=== PATIENT | male | born 1960 | race Caucasian/White ===

== ENCOUNTER 2024-03-15 22:53 | Inpatient (IN) | payer BC ==
[~2024-03-15 22:53] MED LIST: Iopamidol 300 61% 100 ML VIAL FS ONE
[2024-03-15 23:43] LABS: Hematocrit 40.6 % (38.8-50.0); Hemoglobin 14.5 g/dL (13.5-17.5); MDiff Complete? YES; Mean Corpuscular HGB CONC 35.7 g/dL (32.0-36.0); Mean Corpuscular Hemoglobin 31.9 pg (27.0-33.0); Mean Corpuscular Volume 89.4 fl (81.2-95.1); Mean Platelet Volume 10.2 fl (7.4-10.4); Platelet Count 287 10x3/uL (150-450); RBC Distribution Width 12.1 % (11.5-14.5); Red Blood Cell (RBC) Count 4.54 10x6/uL (4.32-5.72); White Blood Cell (WBC) Count 20.6 10x3/uL (3.5-10.5)
[2024-03-15 23:52] LABS: ALT (SGPT) 21 U/L (8-55); AST (SGOT) 19 U/L (5-34); Albumin 3.4 g/dL (3.4-4.8); Alkaline Phosphatase 64 U/L (40-110); Anion Gap 24 mmol/L (10-20); BUN (Urea Nitrogen) 15 mg/dL (8.4-25.7); Bilirubin, Total 1.6 mg/dL (0.2-1.2); Calc. Creatinine Clearance 0 mL/min (70-130); Calcium 9.1 mg/dL (7.8-10.44); Carbon Dioxide 19 mmol/L (23-31); Chloride 95 mmol/L (98-107); Estimated GFR 94; Globulin 3.3 g/dL (2.4-3.5); Glucose 189 mg/dL (80-115); Potassium 4.5 mmol/L (3.5-5.1); Protein, Total 6.7 g/dL (5.8-8.1); Sodium 133 mmol/L (136-145)
[2024-03-15 23:57] LABS: Troponin I Less than 0.010 ng/mL (< 0.028)
[2024-03-16] MEDS ORDERED: Ondansetron PF 4 MG/2 ML Vial ONE ×2 (00:10→12:31)
[2024-03-16] MEDS ORDERED: Ketorolac Tromethamine 30 MG (1 mL) VIAL ONE (00:10)
[2024-03-16 00:11] LABS: Band 7 % (5-11); Eosinophils 1 % (0-10); Lymphocytes 5 % (21-51); Monocytes 6 % (0-10); Neutrophil 81 % (42-75)
[2024-03-16 00:18] LABS: Platelet Adequacy Comment Appears Adequate; RBC Morph Comment Within Normal Limits
[2024-03-16] MEDS ORDERED: Piperacillin/Tazobactam 4.5 GM VIAL ONE (00:54)
[2024-03-16] MEDS: Sodium Chloride 0.9% 1,000 ML IV SCH (03:00)
[2024-03-16] MEDS ORDERED: Communication Order-Pharmacy FS SCH (03:16)
[2024-03-16] MEDS ORDERED: Ondansetron ODT 4 MG TAB PO PRN (03:20)
[2024-03-16] MEDS ORDERED: Ondansetron PF 4 MG/2 ML Vial IVP PRN (03:20)
[2024-03-16] MEDS ORDERED: Dextrose 50% Abboject 50 ML SYRINGE SLOW IVP PRN (03:24)
[2024-03-16] MEDS ORDERED: Glucagon 1 MG/ML KIT IM PRN (03:24)
[2024-03-16] MEDS ORDERED: Dextrose 5% in Water 1,000 ML IV PRN (03:24)
[2024-03-16] MEDS ORDERED: Piperacillin/Tazobactam 3.375 GM in Sodium Chloride 0.9% 100 ML IVPB SCH (03:30)
[2024-03-16 04:00] LABS: INR-International Normal Ratio 1.2; PTT 31.2 sec (22.0-33.0); Prothrombin Time 12.5 sec (9.5-12.1)
[2024-03-16 04:03] LABS: Magnesium 1.8 mg/dL (1.6-2.6)
[2024-03-16 04:16] LABS: Anion Gap 20 mmol/L (10-20); BUN (Urea Nitrogen) 16 mg/dL (8.4-25.7); Calc. Creatinine Clearance 0 mL/min (70-130); Calcium 8.8 mg/dL (7.8-10.44); Carbon Dioxide 21 mmol/L (23-31); Chloride 97 mmol/L (98-107); Estimated GFR 86; Glucose 169 mg/dL (80-115); Potassium 4.3 mmol/L (3.5-5.1); Sodium 134 mmol/L (136-145)
[2024-03-16] MEDS ORDERED: Magnesium Sulfate/D5W 1 GM/100 ML BAG ONE (04:58)
[2024-03-16] MEDS ORDERED: Piperacillin/Tazobactam 3.375 GM VIAL ONE (04:58)
[2024-03-16] MEDS: Magnesium Sulfate/D5W 1 GM in Premix 1 BAG IVPB SCH (04:58)
[2024-03-16] MEDS: Piperacillin/Tazobactam 3.375 GM in Sodium Chloride 0.9% 100 ML IVPB SCH (05:00)
[2024-03-16] MEDS: Pantoprazole 40 MG VIAL IVP SCH (09:40)
[2024-03-16] MEDS: Morphine 2 MG/ML VIAL SLOW IVP PRN (09:41)
[2024-03-16 10:51] VITALS: BMI 31.9
[2024-03-16] MEDS ORDERED: Rocuronium Bromide 10 MG/ML (10ML VIAL) ONE (11:37)
[2024-03-16] MEDS ORDERED: Lidocaine 2% PF 5 ML VIAL ONE (11:37)
[2024-03-16] MEDS ORDERED: PROPOFOL 20 ML ONE (11:37)
[2024-03-16] MEDS ORDERED: Bupivacaine/Epinephrine 0.25% 30 ML VIAL ONE (12:12)
[2024-03-16] MEDS ORDERED: fentaNYL 50 mcg/mL 1 mL Vial ONE (12:13)
[2024-03-16] MEDS ORDERED: PHENYLEPHRINE-NS 100 MCG/ML 10 ML SYRINGE ONE ×3 (12:24→13:47)
[2024-03-16] MEDS ORDERED: Dexamethasone 20 MG/5 ML VIAL ONE (12:31)
[2024-03-16] MEDS ORDERED: ePHEDrine Sulfate 50 MG/10 ML VIAL ONE (12:53)
[2024-03-16] MEDS ORDERED: SUGAMMADEX SODIUM 200 MG/2 ML VIAL ONE (13:48)
[2024-03-16] MEDS ORDERED: Phenylephrine 40 MG/NS 250 ML 250 ML ONE (14:14)
[2024-03-16] MEDS ORDERED: Phenylephrine 40 MG in Sodium Chloride 0.9% 250 ML 250 ML IVPB SCH (16:15)
[2024-03-16] MEDS ORDERED: Phenylephrine 40 MG/NS 250 ML 40 MG in Premix 1 BAG IVPB SCH (16:45)
[2024-03-16] MEDS: Atorvastatin Calcium 40 MG TAB PO SCH (21:50)
[2024-03-16] MEDS: HumaLOG 300 UNITS/3 ML VIAL SC PRN (22:05)
[2024-03-17 03:45] LABS: #Basophils 0.01 10x3/uL (0.0-0.2); #Monocytes 1.09 10x3/uL (0.0-1.1); #Neutrophils 10.81 10x3/uL (1.5-8.4); %Basophils 0.1 % (0.0-2.0); %Lymphocytes 2.8 % (18.0-47.0); %Monocytes 8.9 % (0.0-10.0); %Neutrophils 87.8 % (40.0-75.0); Hematocrit 26.5 % (38.8-50.0); Hemoglobin 9.5 g/dL (13.5-17.5); Mean Corpuscular HGB CONC 35.8 g/dL (32.0-36.0); Mean Corpuscular Hemoglobin 32.6 pg (27.0-33.0); Mean Corpuscular Volume 91.1 fl (81.2-95.1); Mean Platelet Volume 10.7 fl (7.4-10.4); Platelet Count 295 10x3/uL (150-450); RBC Distribution Width 12.2 % (11.5-14.5); Red Blood Cell (RBC) Count 2.91 10x6/uL (4.32-5.72); White Blood Cell (WBC) Count 12.3 10x3/uL (3.5-10.5)
[2024-03-17 03:53] LABS: Anion Gap 15 mmol/L (10-20); BUN (Urea Nitrogen) 25 mg/dL (8.4-25.7); Calc. Creatinine Clearance 108 mL/min (70-130); Carbon Dioxide 19 mmol/L (23-31); Chloride 102 mmol/L (98-107); Estimated GFR 82; Glucose 203 mg/dL (80-115); Potassium 4.3 mmol/L (3.5-5.1); Sodium 132 mmol/L (136-145)
[2024-03-17 10:31] LABS: ALT (SGPT) 61 U/L (8-55); AST (SGOT) 56 U/L (5-34); Albumin 2.3 g/dL (3.4-4.8); Alkaline Phosphatase 41 U/L (40-110); Bilirubin, Direct 0.4 mg/dL (0.1-0.3); Bilirubin, Total 0.6 mg/dL (0.2-1.2); Magnesium 2.2 mg/dL (1.6-2.6); Phosphorus 2.8 mg/dL (2.3-4.7); Protein, Total 5.6 g/dL (5.8-8.1)
[2024-03-17 10:32] LABS: Troponin I Less than 0.010 ng/mL (< 0.028)
[2024-03-18 03:15] LABS: #Monocytes 0.81 10x3/uL (0.0-1.1); #Neutrophils 7.04 10x3/uL (1.5-8.4); %Lymphocytes 4.3 % (18.0-47.0); %Monocytes 9.8 % (0.0-10.0); %Neutrophils 85.5 % (40.0-75.0); Hematocrit 22.3 % (38.8-50.0); Hemoglobin 7.8 g/dL (13.5-17.5); Mean Corpuscular Hemoglobin 31.8 pg (27.0-33.0); Mean Platelet Volume 10.4 fl (7.4-10.4); Platelet Count 253 10x3/uL (150-450); RBC Distribution Width 12.2 % (11.5-14.5); Red Blood Cell (RBC) Count 2.45 10x6/uL (4.32-5.72); White Blood Cell (WBC) Count 8.2 10x3/uL (3.5-10.5)
[2024-03-18 03:46] LABS: Anion Gap 14 mmol/L (10-20); BUN (Urea Nitrogen) 21 mg/dL (8.4-25.7); Calc. Creatinine Clearance 163 mL/min (70-130); Calcium 8.2 mg/dL (7.8-10.44); Carbon Dioxide 22 mmol/L (23-31); Chloride 101 mmol/L (98-107); Estimated GFR 101; Glucose 158 mg/dL (80-115); Magnesium 2.6 mg/dL (1.6-2.6); Potassium 3.8 mmol/L (3.5-5.1); Sodium 133 mmol/L (136-145)
[2024-03-18] MEDS: Carvedilol 25 MG TAB PO SCH ×2 (11:10→21:23)
[2024-03-18] MEDS: Sacubitril 49 MG/Valsartan 51 MG TABLET PO SCH ×2 (12:08→22:00)
[2024-03-18 13:26] LABS: #Basophils 0.01 10x3/uL (0.0-0.2); #Eosinphils 0.01 10x3/uL (0.0-0.5); #Monocytes 0.65 10x3/uL (0.0-1.1); %Basophils 0.2 % (0.0-2.0); %Eosinophils 0.2 % (0.0-6.0); %Lymphocytes 5.8 % (18.0-47.0); %Monocytes 9.9 % (0.0-10.0); %Neutrophils 83.6 % (40.0-75.0); Hematocrit 21.7 % (38.8-50.0); Hemoglobin 7.5 g/dL (13.5-17.5); Mean Corpuscular HGB CONC 34.6 g/dL (32.0-36.0); Mean Corpuscular Hemoglobin 31.8 pg (27.0-33.0); Mean Corpuscular Volume 91.9 fl (81.2-95.1); Mean Platelet Volume 9.9 fl (7.4-10.4); Platelet Count 241 10x3/uL (150-450); RBC Distribution Width 12.3 % (11.5-14.5); Red Blood Cell (RBC) Count 2.36 10x6/uL (4.32-5.72); White Blood Cell (WBC) Count 6.6 10x3/uL (3.5-10.5)
[2024-03-18 13:44] LABS: ALT (SGPT) 59 U/L (8-55); AST (SGOT) 38 U/L (5-34); Albumin 2.3 g/dL (3.4-4.8); Alkaline Phosphatase 48 U/L (40-110); Bilirubin, Direct 0.2 mg/dL (0.1-0.3); Bilirubin, Total 0.4 mg/dL (0.2-1.2)
[2024-03-18] MEDS: Potassium Chloride 20 MEQ TAB PO SCH (18:28)
[2024-03-18 18:29] LABS: Magnesium 2.7 mg/dL (1.6-2.6)
[2024-03-18 18:54] LABS: Phosphorus 1.6 mg/dL (2.3-4.7)
[2024-03-18] MEDS ORDERED: Electrolyte Replacement Protocol 1 EACH FS PRN (18:56)
[2024-03-18] MEDS: PHOS-NAK 1 PKT PACK PO SCH (21:23)
[2024-03-19 02:55] LABS: #Basophils 0.01 10x3/uL (0.0-0.2); #Eosinphils 0.05 10x3/uL (0.0-0.5); #Monocytes 0.53 10x3/uL (0.0-1.1); #Neutrophils 4.12 10x3/uL (1.5-8.4); %Basophils 0.2 % (0.0-2.0); %Eosinophils 0.9 % (0.0-6.0); %Lymphocytes 12.2 % (18.0-47.0); %Monocytes 9.8 % (0.0-10.0); %Neutrophils 76.3 % (40.0-75.0); Hematocrit 23.1 % (38.8-50.0); Hemoglobin 7.9 g/dL (13.5-17.5); Mean Corpuscular HGB CONC 34.2 g/dL (32.0-36.0); Mean Corpuscular Hemoglobin 31.3 pg (27.0-33.0); Mean Corpuscular Volume 91.7 fl (81.2-95.1); Mean Platelet Volume 10.1 fl (7.4-10.4); Platelet Count 267 10x3/uL (150-450); RBC Distribution Width 12.1 % (11.5-14.5); Red Blood Cell (RBC) Count 2.52 10x6/uL (4.32-5.72); White Blood Cell (WBC) Count 5.4 10x3/uL (3.5-10.5)
[2024-03-19 03:07] LABS: Anion Gap 13 mmol/L (10-20); BUN (Urea Nitrogen) 21 mg/dL (8.4-25.7); Calc. Creatinine Clearance 166 mL/min (70-130); Calcium 8.3 mg/dL (7.8-10.44); Carbon Dioxide 24 mmol/L (23-31); Chloride 101 mmol/L (98-107); Estimated GFR 101; Glucose 157 mg/dL (80-115); Potassium 4.2 mmol/L (3.5-5.1); Sodium 134 mmol/L (136-145)
[2024-03-19 03:41] LABS: Phosphorus 2.5 mg/dL (2.3-4.7)
[2024-03-19] MEDS: Carvedilol 12.5 MG TAB PO SCH (17:34)
[2024-03-19] MEDS: Sacubitril 24MG/Valsartan 26 MG TAB PO SCH (20:37)
[2024-03-20] MEDS: Pantoprazole DR 40 MG TAB PO SCH (08:08)
[2024-03-20 09:04] LABS: #Basophils 0.02 10x3/uL (0.0-0.2); #Eosinphils 0.17 10x3/uL (0.0-0.5); #Monocytes 0.77 10x3/uL (0.0-1.1); %Basophils 0.3 % (0.0-2.0); %Eosinophils 2.7 % (0.0-6.0); %Lymphocytes 13.6 % (18.0-47.0); %Monocytes 12.3 % (0.0-10.0); %Neutrophils 70.3 % (40.0-75.0); Hematocrit 26.1 % (38.8-50.0); Hemoglobin 9.1 g/dL (13.5-17.5); Mean Corpuscular HGB CONC 34.9 g/dL (32.0-36.0); Mean Corpuscular Hemoglobin 31.3 pg (27.0-33.0); Mean Corpuscular Volume 89.7 fl (81.2-95.1); Platelet Count 328 10x3/uL (150-450); RBC Distribution Width 12.5 % (11.5-14.5); Red Blood Cell (RBC) Count 2.91 10x6/uL (4.32-5.72); White Blood Cell (WBC) Count 6.3 10x3/uL (3.5-10.5)
[2024-03-20 10:13] VITALS: TEMP 98
[2024-03-20 11:18] LABS: Anion Gap 14 mmol/L (10-20); BUN (Urea Nitrogen) 16 mg/dL (8.4-25.7); Calc. Creatinine Clearance 168 mL/min (70-130); Carbon Dioxide 25 mmol/L (23-31); Chloride 101 mmol/L (98-107); Estimated GFR 102; Sodium 136 mmol/L (136-145)
[2024-03-20 11:19] LABS: Calcium 8.5 mg/dL (7.6-10.4); Glucose 152 mg/dL (80-115)
[2024-03-20] MEDS: Spironolactone 25 MG TAB PO SCH (11:34)
[2024-03-20 12:16] VITALS: BP 114/73
[2024-03-20 12:44] LABS: Magnesium 2.1 mg/dL (1.6-2.6)
[2024-03-21] MEDS ORDERED: Spironolactone 25 MG TAB PO SCH (08:00)
== END 2024-03-20 16:50 | disposition home or self-care (01) | DRG 854 ==
LOC: CSHERS 22:53 → CSHERHOLD 03-16 03:16 → CSHTELE 03-16 08:11 → CSHICU 03-16 15:44
PROVIDERS: ADMIT Family Medicine; ATTEND Family Medicine
PROC: 0FT44ZZ Resection of Gallbladder, Percutaneous Endoscopic Approach (ICD-10-PCS; principal; 2024-03-16)
PROC: 3E033XZ Introduction of Vasopressor into Peripheral Vein, Percutaneous Approach (ICD-10-PCS; 2024-03-16)
PROC: 3E03329 Introduction of Other Anti-infective into Peripheral Vein, Percutaneous Approach (ICD-10-PCS; 2024-03-16)
PROC: 5A09357 Assistance with Respiratory Ventilation, Less than 24 Consecutive Hours, Continuous Positive Airway Pressure (ICD-10-PCS; 2024-03-17)
PROC: 30233N1 Transfusion of Nonautologous Red Blood Cells into Peripheral Vein, Percutaneous Approach (ICD-10-PCS; 2024-03-19)
DX: A41.9 Sepsis, unspecified organism (principal); D62 Acute posthemorrhagic anemia; I50.22 Chronic systolic (congestive) heart failure; K81.0 Acute cholecystitis; I42.8 Other cardiomyopathies; E11.9 Type 2 diabetes mellitus without complications; E78.5 Hyperlipidemia, unspecified; I48.91 Unspecified atrial fibrillation; I11.0 Hypertensive heart disease with heart failure; I25.10 Atherosclerotic heart disease of native coronary artery without angina pectoris; R65.20 Severe sepsis without septic shock; I49.3 Ventricular premature depolarization; I35.0 Nonrheumatic aortic (valve) stenosis; I48.0 Paroxysmal atrial fibrillation; E86.9 Volume depletion, unspecified; Z79.899 Other long term (current) drug therapy; Z98.890 Other specified postprocedural states; Z87.891 Personal history of nicotine dependence; Z79.84 Long term (current) use of oral hypoglycemic drugs
CPT/HCPCS: 36415; 36416; 36430; 71045; 74177; 76705; 80048; 80053; 80076; 83605; 83735; 83880; 84100; 84484; 85025; 85610; 85730; 86141; 86850; 86900; 86901; 87040; 88304; 93005; 93010; 94660; 94760; 94762; 96374; 96375; A4649; C1889; C9113; J1100; J1815; J1885; J2001; J2272; J2405; J2543; J2704; J3010; J3475; J3490; J7050; P9016; Q9967